=== PATIENT | female | born 1990 | race Caucasian/White ===

== ENCOUNTER 2022-11-09 00:57 | Emergency (ER) | payer BC, SELFPAY ==
--- NOTE | ~2022-11-09 | XR_ITS ---
EXAMINATION: XR ELBOW, LEFT CLINICAL INFORMATION: Trauma COMPARISON: None TECHNIQUE: AP, lateral, and oblique views of the left elbow. FINDINGS: There is a mildly impacted fracture of the radial head involving the articular surface anteriorly 2 mm impaction and slight anterior displacement. No additional fractures. Elbow joint effusion present. XR/XR elbow LT 2V IMPRESSION: Mildly impacted and displaced radial head fracture.
[2022-11-09 01:01] VITALS: BP 132/97; PULSE 78; RESP 18; TEMP 37.1; O2SAT 95; BMI 30.4
[2022-11-09] MEDS: Acetaminophen 325 MG TABLET 975 MG PO (02:04)
[2022-11-09] MEDS: Ketorolac Tromethamine 15 MG/ML VIAL IM (02:05)
--- NOTE | 2022-11-09 02:24 | ED_ITS ---
HPI - Extremity Problem General Chief complaint: Extremity Injury, Upper Stated complaint: L elbow pain d/t fall Time Seen by Provider: 11/09/22 01:16 Source: patient Mode of arrival: ambulatory History of Present Illness HPI Narrative: 31-year-old female presents with left elbow pain, she is right-hand dominant, in states that she fell backwards landing primarily on her left elbow and denies any numbness or tingling. Related Data Previous Rx's Medication Instructions Recorded ketorolac 10 mg tablet 10 mg PO Q6H PRN pain 5 days #20 11/09/22 tabs Allergies Allergy/AdvReac Type Severity Reaction Status Date / Time No Known Allergies Allergy Verified 11/09/22 01:02 Review of Systems Review of Systems: Pertinent positives and negatives as stated in HPI. [facility] Past Medical History Source: nursing notes reviewed Social History Social History Advance Directives: No Physical Exam Vital Signs: Vital Signs: Last Vital Signs Temp 98.7 F 11/09/22 01:01 Pulse 78 11/09/22 01:01 Resp 18 11/09/22 01:01 BP 132/97 H 11/09/22 01:01 Pulse Ox 95 11/09/22 01:01 O2 Del Method 11/09/22 01:01 BMI result Body Mass Index 30.4 VITAL SIGNS: Reviewed. GENERAL: Well developed, well nourished, in no acute distress. HEAD: Normocephalic/atraumatic EYES: PERRLA, EOMI LUNGS: Normal breath sounds. No adventitious sounds or accessory muscle use. SpO2<95> CARDIOVASCULAR: Regular rate and rhythm without noted murmur ABDOMEN: Soft, non-tender, non-distended with bowel sounds. MUSCULOSKELETAL: No tenderness, deformities, or effusions noted on gross inspection. EXTREMITIES: No cyanosis, clubbing or edema; LEFT UPPER EXTREMITY: There is mild swelling at the elbow, radial/ulnar pulses are intact, sensation is intact, capillary refill less than 3 seconds. SKIN: Inspection of the skin reveals no rashes NEUROLOGIC: Alert and oriented x 4. Strength and sensation to light touch were grossly intact x 4. Medications Administered Discontinued Medications Generic Name Dose Route Start Last Admin Trade Name Freq PRN Reason Stop Dose Admin Acetaminophen 975 mg 11/09/22 01:53 11/09/22 02:04 Acetaminophen 325 Mg Tablet PO 11/09/22 01:54 975 mg ONCE ONE Administration Ketorolac Tromethamine 15 mg 11/09/22 01:53 11/09/22 02:05 Ketorolac Tromethamine 15 Mg/Ml Vial IM 11/09/22 01:54 15 mg ONCE ONE Administration Medical Decision Making Medical Decision Making MDM Narrative: 31-year-old female with suspected fracture, and on review the elbow x-ray my interpretation is in agreement with radiology's impression of a fracture i nvolving the articular surface. Patient was placed in epic posterior long-arm and received combination analgesics and on re-evaluation has good control of her pain. She is otherwise discharged home in stable condition with instructions to follow-up with orthopedics by calling the office on Thursday. Discharge Plan Discharge Clinical Impression: Closed fracture of radial head Patient Disposition: Home, Self-Care Instructions: Elbow Fracture (ED), Splint Care (ED) Additional Instructions: 1. Tylenol 1000 mg, orally, every 6 hours as needed for pain control. Do not exceed 4000 mg within 24 hours. 2. Please call the office of the orthopedic surgeon on Thursday. Return to the ER for worsening symptoms. Prescriptions: New ketorolac 10 mg tablet 10 mg PO Q6H PRN (Reason: pain) 5 Days Qty: 20 0RF Referrals: Enoch Velázquez MD [Physician] - (31-year-old female with impacted radial head fracture on the left, she is right-hand dominant, posterior long-arm splint placed, the fracture involves articular surface) Stand Alone Forms: Work/School Release
[2022-11-09 02:40] VITALS: BP 135/86; PULSE 75; RESP 16; TEMP 36.9; O2SAT 98
--- NOTE | 2022-11-09 02:41 | MHC.EDTECH ---
applied a posterior long arm splint and sling. pt tolerated well. provider aware.
== END 2022-11-09 03:09 | disposition home or self-care (01) ==
PROVIDERS: Emergency Provider Student in an Organized Health Care Education/Training Program
DX: S52.92XA Unspecified fracture of left forearm, initial encounter for closed fracture (principal); M25.522 Pain in left elbow; X58.XXXA Exposure to other specified factors, initial encounter; Y93.9 Activity, unspecified; Y92.9 Unspecified place or not applicable; Y99.9 Unspecified external cause status
CPT/HCPCS: 29105; 73070; 96372; 99284; J1885

== ENCOUNTER → 2022-11-14 08:32 | Outpatient (BNVA) | payer BC, SELFPAY | PROVIDERS: Visit Provider Physician Assistant | DX: Z13.89 Encounter for screening for other disorder (principal) ==

== ENCOUNTER 2022-11-21 11:11 | Outpatient (REF) | payer BC, SELFPAY | END 2022-11-21 11:12 | disposition home or self-care (01) | LOC: HO.HOSX 11:11 | PROVIDERS: Visit Provider Physician Assistant | DX: Z13.89 Encounter for screening for other disorder (principal) ==

== ENCOUNTER 2022-12-19 13:40 | Outpatient (REF) | payer BC, SELFPAY ==
--- NOTE | ~2022-12-19 | XR_ITS ---
EXAMINATION: XR elbow LT min 3V CLINICAL INFORMATION: Pain COMPARISON: Elbow radiographs 11/09/2022 TECHNIQUE: 3 views of the elbow XR/XR elbow LT min 3V FINDINGS/IMPRESSION: Redemonstration of an intra-articular mildly displaced impacted fracture of the radial head with slightly increased degree of displacement. No sarah bony callus formation. Joint spaces are maintained. Displacement of the anterior and posterior fat pads compatible with joint effusion similar to prior. Soft tissues are unremarkable. IMPRESSION: 1. Redemonstration of an intra-articular mildly displaced impacted fracture of the radial head with slightly increased degree of displacement. No sarah bony callus formation. 2. Elbow effusion similar to prior.
== END 2022-12-19 13:41 | disposition home or self-care (01) ==
LOC: HO.HOSX 13:40
PROVIDERS: Visit Provider Physician Assistant
DX: S52.122D Displaced fracture of head of left radius, subsequent encounter for closed fracture with routine healing (principal)
CPT/HCPCS: 73080

== ENCOUNTER 2023-01-30 05:35 | Outpatient (REF) | payer BC, SELFPAY | END 2023-01-30 05:36 | disposition home or self-care (01) | LOC: HO.HOSX 05:35 | PROVIDERS: Visit Provider Physician Assistant | DX: Z13.89 Encounter for screening for other disorder (principal) ==

== ENCOUNTER 2023-02-05 06:06 | Outpatient (REF) | payer BC, SELFPAY | END 2023-02-05 06:07 | disposition home or self-care (01) | LOC: HO.HOSX 06:06 | PROVIDERS: Visit Provider Physician Assistant | DX: Z13.89 Encounter for screening for other disorder (principal) ==

== ENCOUNTER 2025-10-09 13:36 | Outpatient (AMB) | payer BC, SELFPAY ==
--- NOTE | 2025-10-09 13:45 | A.OFFPC_ITS ---
Vital Signs 10/09/25 13:53 Height 5 ft 6 in Weight 193 lb 6 oz BMI 31.2 BP 100/76 Blood Pressure Location Rt brachial Position Sitting Respiration 15 Pulse 75 Pulse Source Pulse Oximeter Temp 98.8 F Temp Source Temporal Artery Scan Pulse Oximetry (%) 96 Oxygen Delivery Method Room Air Intake Visit Reasons: CPE? Intake Note: Melvin presents in the office today to establish care. 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 She is due for a physical. She lives with her and her 2 children who are 12 years old and 16 years old. She endorses discomfort in the right hand near the base of the 3rd and 4th fingers and and intermittent tingling sensation in the 2nd 3rd and 4th fingers and notices a difference in strength compared to the left fingers. 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 Denies trauma. She is right- hand dominant. She had 1 ER visit within the past year for epigastric pain with a negative workup. Maternal aunt had breast cancer and test away in her 30s from it. The patient does not know if anyone in the family had BRCA testing, and she is interested in this. I referred her to [facility] genetics. She is also due for Gynecology visit. Referred. ROS: Constitutional: No unexplained weight loss, fever, chills, fatigue or night sweats. Eyes: No vision changes, blurry vision, double vision, eye pain, eye redness, eye discharge. ENT: No hearing loss, sneezing, congestion, runny nose or sore throat. Respiratory: No shortness of breath, cough or sputum production. Cardiovascular: No chest pain, chest pressure or chest discomfort. No palpitations or pedal edema. Gastrointestinal: No anorexia, nausea, vomiting or diarrhea. No abdominal pain or blood in stool. Genitourinary: No dysuria, hematuria, urinary frequency. Neurologic: No headache, dizziness, syncope, tremors, ataxia, memory loss. Musculoskeletal: See HPI Hematologic/Lymphatics: No bleeding or bruising. No painful lymph nodes. Skin: No rash Endocrine: No cold or heat intolerance. No polyuria or polydipsia. Psychiatric: No depression or anxiety. No SI/HI. Physical exam: Constitutional: Alert, in no distress. Head: Normocephalic. Eyes: Pupils are equal, round and reactive to light. Extraocular muscles intact. Ear, Nose and Throat: Canals clear. TMs normal. Normal nasal mucosa. No nasal discharge. No oral lesions. Neck: Supple, Full range of motion. No lymphadenopathy. No palpable thyroid masses. Respiratory: Clear to auscultation. Cardiovascular: S1 S2 regular. No murmurs. No carotid bruits. Gastrointestinal: Abdomen soft, non-tender, non-distended. Normal bowel sounds. No palpable masses. Neurologic: No focal neurological deficits. Symmetric patellar reflexes. Moves all extremities spontaneously. Sensation intact bilaterally. Skin: No rashes Hands/wrists: Negative Tinel's test. Negative Phalen maneuver. Nontender to palpation. No visible deformities. Radial pulses intact bilaterally. No edema. Handgrip strength 5/5 bilaterally. Full range of motion. Extremities: No lower extremity edema. Psychiatric: Normal mood and affect [facility] Medical History (Updated 10/09/25 @ 14:40 by LESLEY Hussein) Family history of breast cancer Right hand paresthesia Right hand pain Screening for cardiovascular condition Routine physical examination Family History (Updated 10/09/25 @ 13:58 by Laila Almeida CMA) Father Hypertension Hyperlipemia Diabetes Mother Thyroid disorder Social History (Updated 10/09/25 @ 13:53 by Laila Almeida CMA) Housing: House Alcohol intake: current Patient Tobacco Use Status: Never used Tobacco e-Cigarette/Vaping Use: Never Used Second Hand Smoke Exposure: No service: No Current occupational status: employed 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 1. Little interest or pleasure in doing things: not at all 2. Feeling down, depressed, or hopeless: not at all 3. Trouble falling or staying asleep, or sleeping too much: not at all 4. Feeling tired or having little energy: not at all 5. Poor appetite or overeating: not at all 6. Feeling bad about yourself - or that you are a failure or have let yourself or your family down: not at all 7. Trouble concentrating on things, such as reading the newspaper or watching television: not at all 8. Moving or speaking so slowly that other people could have noticed. Or the opposite - being so fidgety or restless that you have been moving around a lot more than usual: not at all 9. Thoughts that you would be better off or of hurting yourself in some way: not at all Total score: 0 Depression Screening Interpretation: Negative Depression Screening Done: Yes 20242 - PHQ-9 Billing: Yes Source: Developed by Drs. Cresencio Montano, Do Peoples, Arik Montejo and colleagues, with an educational zheng from [email or web address]. Thrive Questionnaire Date Thrive assessed: 10/09/25 I am a: Patient What is your living situation today?: I have a steady place to live Within the past 12 months, did the food you bought not last and you didn't have the money to get more?: I choose not to answer this question Within the past 12 months, did you worry whether your food would run out before you got money to buy more?: I choose not to answer this question Do you have trouble paying for medicines?: I choose not to answer this question Do you have trouble getting transportation to medical appointments?: No Do you have trouble paying your heating and electricity bill?: I choose not to answer this question Do you have trouble taking care of your child, family member or friend?: I choose not to answer this question Do you have trouble with day-to-day activities such as bathing, preparing meals, shopping, managing finances, etc.?: I choose not to answer this question Are you currently unemployed and looking for a job?: I choose not to answer this question Are you interested in more education?: I choose not to answer this question Please select the resources that you would like help with: None Currently or been in a relationship where the following occur: No concerns reported THRIVE Score: 0 AUDIT C Alcohol Use Questionnaire (AUDIT-C) 1. How often do you have a drink containing alcohol?: 2-3 times a week 2. How many drinks containing alcohol do you have on a typical day when you are drinking?: 3 or 4 3. How often do you have six or more drinks on one occasion?: Less than monthly Total Score: 5 PATRICIA-7 AMB Questionnaire PATRICIA-7 Date PATRICIA - 7 assessed: 10/09/25 Feeling nervous, anxious, or on edge: 0 = Not at all Not being able to stop or control worryin = Not at all Worrying too much about different things: 0 = Not at all Trouble relaxin = Not at all Being so restless that it is hard to sit still: 0 = Not at all Becoming easily annoyed or irritable: 0 = Not at all Feeling afraid as if something awful might happen: 0 = Not at all Total PATRICIA-7 score (0-4 normal; 5-9 mild; 10-14 moderate; 15-21 severe): 0 Source: Developed by Drs. Cresencio Montano, Do Peoples, Arik Montejo and colleagues, with an educational zheng from [email or web address]. PATRICIA-7 Assessment Billing PATRICIA-7 Assessment Tool: PATRICIA-7 Assessment 71846 Physical exam (Primary Care) Vital Signs: Last Vital Signs Temp 98.8 F 10/09/25 13:53 Pulse 75 10/09/25 13:53 Resp 15 10/09/25 13:53 BP 100/76 10/09/25 13:53 Pulse Ox 96 10/09/25 13:53 Oxygen Delivery Method Room Air 10/09/25 13:53 BMI result Body Mass Index 31.2 Tobacco/Smoking Status: Tobacco use Status Tobacco use date assessed 10/09/25 10/09/25 13:56 Patient Tobacco Use Status Never used Tobacco 10/09/25 13:56 e-Cigarette/Vaping Use Never Used 10/09/25 13:56 PHQ-9: PHQ-9 Score PHQ-9: Total score 0 10/09/25 13:56 Depression Screening Interpretation: Negative Thrive Assessment: Date of Thrive Assessment Date Thrive assessed 10/09/25 10/09/25 13:47 Currently or been in a relationship where the following occur: No concerns reported Office Procedures Flu Questionnaire Does the patient have a severe egg allergy?: No Does the patient have severe life threatening allergies?: No Does the patient have a fever or illness today?: No Has the patient ever had Guillain-[place] Syndrome?: No Has the patient ever had any past reaction to a flu shot?: No Immunizations Fluarix [id number] (PF) 45 mcg (15 mcg x 3)/0.5 mL IM syringe Performing Provider: LESLEY Hussein Performing Location: [facility] [place] [facility] Administered by: Walter Pierre RN on 10/09/25 14:35 Dose Route Admin Location Dispensed Lot Number Expiration Date NDC Cad Manager 0.5 mL IM Right Deltoid 0.5 mL [id number] 05/01/26 45050-455-12 [employer] VIS Given Date VIS Provided VIS Publication Date 10/09/25 Single Vaccine 24 Eligibility Eligibility Date Funding Source Not VFC Eligible 10/09/25 Private Boostrix Tdap 2.5 Lf unit-8 mcg-5 Lf/0.5 mL intramuscular syringe Performing Provider: LESLEY Hussein Performing Location: [facility] Administered by: Walter Pierre RN on 10/09/25 14:34 Dose Route Admin Location Dispensed Lot Number Expiration Date NDC Cad Manager 0.5 mL IM Left Deltoid 0.5 mL [id number] 04/13/28 07402-409-39 [employer] Total Dispensed Waste 0.5 mL 0 % VIS Given Date VIS Provided VIS Publication Date 10/09/25 Single Vaccine 21 Eligibility Eligibility Date Funding Source Not VFC Eligible 10/09/25 Private Coding Level of Care Code New Pt Level 3 (59032) New Pt Prev Care 18-39yr(09525 Diagnoses Routine physical examination Z00.00 Screening for cardiovascular condition Z13.6 Right hand paresthesia R20.2 Additional Codes PATRICIA-7 Assessment Billing - PATRICIA-7 Assessment Tool: PATRICIA-7 Assessment 74146 ([id number]) PHQ-9 - 67332 - PHQ-9 Billing: Yes ([id number]) Assessment & Plan Assessment & Plan (1) Routine physical examination: Code(s): Z00.00 - Encounter for general adult medical examination without abnormal findings Category: Medical Plan: Patient is seen today for a routine physical. 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 - Blood pressure screening - Cholesterol screening - Osteoporosis prevention including calcium/vitamin D intake, weight bearing exercise & smoking cessation - Nutritional and exercise counseling - Counseling of injury prevention including fire prevention, smoke alarms and seat belt usage - Screening for depression - Education about skin cancer - Recommendations about immunizations - Recommendation of an eye exam - Genetic cancer risk screening (2) Screening for cardiovascular condition: Code(s): Z13.6 - Encounter for screening for cardiovascular disorders Category: Medical (3) Right hand paresthesia: Code(s): R20.2 - Paresthesia of skin Category: Medical Plan: ?CTS. Associated with discomfort and decreased strength. Check Xray and EMG/nerve conduction velocity. Plan Follow up in 8-10 weeks to review results. Orders: Orders Lipid Panel Today E78.5 - Hyperlipidemia, unspecified, Z00.00 - Encounter for general adult medical examination without abnormal findings, Z13.6 - Encounter for screening for cardiovascular disorders Comprehensive Met. Panel Today Z00.00 - Encounter for general adult medical examination without abnormal findings, Z13.6 - Encounter for screening for cardiovascular disorders TDaP Immunization Today Z23 - Encounter for immunization NE nerve conduction velocity Today R20.2 - Paresthesia of skin Complete Blood Count no Diff Today Z00.00 - Encounter for general adult medical examination without abnormal findings, Z13.6 - Encounter for screening for cardiovascular disorders TSH reflex Free T4 Today Z00.00 - Encounter for general adult medical examination without abnormal findings, Z13.6 - Encounter for screening for cardiovascular disorders Vitamin D 25-OH (D2 and D3) Today Z00.00 - Encounter for general adult medical examination without abnormal findings, Z13.6 - Encounter for screening for cardiovascular disorders Influenza [id number] Immunization Today Z23 - Encounter for immunization XR hand RT min 3V Today M79.641 - Pain in right hand NE electromyogram (EMG) Today R20.2 - Paresthesia of skin Referrals CAREER RESOURCE SPECIALIST Referral Z01.419 - Encounter for gynecological examination (general) (routine) without abnormal findings Genetics Referral Z80.3 - Family history of malignant neoplasm of breast
[2025-10-09 13:53] VITALS: BP 100/76; PULSE 75; RESP 15; TEMP 37.1; O2SAT 96; BMI 31.2
== END 2025-10-09 14:32 | disposition home or self-care (01) ==
LOC: HO.HMCFM 13:37
PROVIDERS: PCP Physician Assistant Medical; Visit Provider Physician Assistant Medical
DX: Z00.00 Encounter for general adult medical examination without abnormal findings (principal); R20.2 Paresthesia of skin; M79.641 Pain in right hand; Z23 Encounter for immunization; Z13.6 Encounter for screening for cardiovascular disorders; Z80.3 Family history of malignant neoplasm of breast

== ENCOUNTER → 2025-10-09 13:36 | Outpatient (BNVA) | payer BC, SELFPAY | PROVIDERS: PCP Physician Assistant Medical; Visit Provider Physician Assistant Medical | DX: Z00.00 Encounter for general adult medical examination without abnormal findings (principal); R20.2 Paresthesia of skin; E78.5 Hyperlipidemia, unspecified; M79.641 Pain in right hand; Z23 Encounter for immunization; Z80.3 Family history of malignant neoplasm of breast | CPT/HCPCS: 90471; 90472; 90656; 90715; 96127 ==